=== PATIENT | female | born 1965 | race Caucasian/White ===

== ENCOUNTER 2023-10-03 12:35 | Outpatient (CLI) | payer BC | END 2023-10-03 12:36 | disposition home or self-care (01) | LOC: CSHMAMMO 12:35 | PROVIDERS: ATTEND Obstetrics & Gynecology | DX: Z12.31 Encounter for screening mammogram for malignant neoplasm of breast (principal); Z98.82 Breast implant status; Z91.89 Other specified personal risk factors, not elsewhere classified | CPT/HCPCS: 77063; 77067 ==

== ENCOUNTER 2024-11-17 12:26 | Outpatient (CLI) | payer BC | END 2024-11-17 12:27 | disposition home or self-care (01) | LOC: CSHMAMMO 12:26 | DX: Z12.31 Encounter for screening mammogram for malignant neoplasm of breast (principal); Z98.82 Breast implant status; Z91.89 Other specified personal risk factors, not elsewhere classified | CPT/HCPCS: 77063; 77067 ==